=== PATIENT | female | born 1975 | race Two or more races ===

== ENCOUNTER 2016-05-16 23:28 | Emergency (ER) | payer SELFPAY ==
[~2016-05-16] VITALS: Ht 157.5 cm; Wt 63.5 kg
[2016-05-16] MEDS ORDERED: NKM (23:32)
[2016-05-17 02:28] VITALS: BP 139/79
--- NOTE | 2016-05-17 02:40 | Emergency Room Report ---
History of Present Illness General Chief Complaint: Alcohol Intoxication Source: Patient, EMS Present Illness HPI This is possibly 40-year-old female who is brought in for alcohol intoxication. She's been here before under different name and also as a Malinda Gloria. I remembered [place] appearance[place] her, she became combative so 911 was called. Patient was intoxicated. Denies any drug use. No nausea no vomiting. Denies any other complaint. Not suicidal or homicidal. Allergies: Coded Allergies: UNABLE TO ASSESS (Unverified , 05/16/16) patient is uncooperative Patient History Past Medical History: see triage record, old chart reviewed Past Surgical History: unable to obtain Pertinent Family History: unable to obtain Social History: Reports: alcohol use Last Menstrual Period: unk Now: No Immunizations: other Reviewed Nursing Documentation: PMH: Agreed, PSxH: Agreed Review of Systems Eye: Denies: blurred vision, eye pain ENT: Denies: ear pain, nose congestion, throat swelling Respiratory: Denies: cough, shortness of breath Cardiovascular: Denies: chest pain, palpitations Gastrointestinal: Denies: abdominal pain, diarrhea, nausea, vomiting Musculoskeletal: Denies: back pain, joint pain Skin: Denies: rash Neurological: Denies: headache, numbness Endocrine: Denies: increased thirst, increased urine Hematologic/Lymphatic: Denies: easy bruising All Other Systems: negative except mentioned in HPI Physical Exam Vital Signs Date Time Temp Pulse Resp B/P Pulse Ox O2 Delivery O2 Flow Rate FiO2 05/16/16 23:27 89 20 139/79 98 Room Air 05/17/16 02:28 97.9 vitals normal Sp02 EP Interpretation: reviewed, normal General Appearance: well appearing, no apparent distress, alert Head: normocephalic, atraumatic Eyes: bilateral eye EOMI, bilateral eye PERRL ENT: hearing grossly normal, normal pharynx Neck: full range of motion, supple, no meningismus Respiratory: chest non-tender, lungs clear, normal breath sounds Cardiovascular #1: regular rate, rhythm, no murmur Gastrointestinal: normal bowel sounds, non tender, no mass, no organomegaly, no bruit, non-distended Musculoskeletal: back normal, normal range of motion Neurologic: alert Psychiatric: mood/affect normal Skin: warm/dry Medical Decision Making Diagnostic Impression: Primary Impression: Acute alcoholic intoxication Qualified Codes: F10.120 - Alcohol abuse with intoxication, uncomplicated ER Course Patient present with alcohol intoxication. Initially she was combative. She would get out of bed and urinating on the floor. She probably fell asleep for couple hours. Now she is awake and said she felt better. Walking without a problem. No slurred speech. No vomiting. She wants to leave. Last Vital Signs Date Time Temp Pulse Resp B/P Pulse Ox O2 Delivery O2 Flow Rate FiO2 05/17/16 02:28 97.9 89 20 139/79 98 Room Air Status: improved Disposition: HOME, SELF-CARE Condition: Stable Referrals: NOT CHOSEN IPA/MD,REFERRING (PCP) Patient Instructions: Alcohol Intoxication, [id number] Additional Instructions: Abstain from drinking to excess. Followup with your Dr. in 7 days. Go to rehabilitation. Return if worse. JOO SU M.D. May 17, 2016 02:40
[2016-05-17 02:50] VITALS: BP 139/79
== END 2016-05-17 02:52 | disposition home or self-care (01) ==
LOC: EDBD 23:28 → EMR 23:40
DX: F10.120 Alcohol abuse with intoxication, uncomplicated (principal)
CPT/HCPCS: 99282